=== PATIENT | female | born 1955 | race Caucasian/White ===

== ENCOUNTER 2025-01-29 12:33 | Emergency (ER) | payer OTHER, MEDICAID ==
[~2025-01-29] VITALS: Ht 149.9 cm; Wt 63.4 kg
[~2025-01-29 12:33] MED LIST: LEVO500T91 PO
--- NOTE | 2025-01-29 13:04 | ED.PDOC ---
GI ASSESSMENT HPI Comments 69 y.o female with PMHx of hyperlipidemia and HTN, presents to the ED for a chief complaint of abdominal pain associated with bloating and belching that started 3 days ago. Patient reports pain is localized at the epigastric region, is non radiating, constant and has no alleviating factors. Patient denies any nausea, vomiting, diarrhea, fever, chills, dysuria. Chief Complaint: Abdominal Pain Time Seen by MD: 12:58 Primary Care Provider: CAROL ANN Ríos Notes: Nurses Notes, Medications, Allergies Allergies: Coded Allergies: NO KNOWN ALLERGIES (Unverified , 07/19/16) Home Meds Active Scripts Levofloxacin Hemihydrate (LEVAQUIN 500 MG) 500 Mg Tab, 500 MG PO DAILY for 7 Days, #7 TAB Prov:AGNIESZKA HIRSCH MD 11/22/23 Information Source: Patient Mode of Arrival: Ambulatory Timing: Days (3) Duration: Since onset Quality: Aching Vomitus: None Stool: Normal Severity: Moderate Recent Hx of: None Pain Location: Epigastric Associated sign and symptoms: Abdominal Pain Past Medical History PAST MEDICAL HISTORY: Anxiety, Depression, HTN Surgical History: Unknown APPOINTMENT SETTER History: No Pertinent APPOINTMENT SETTER History Family History Family History: Reviewed,noncontributory to illness Social History Smoker: Non-Smoker Alcohol: Denies ETOH Use Drugs: Denies Drug Use Lives In: Home Constitutional: denies: chills, diaphoresis, fatigue, fever, malaise, sweats, weakness, others EENTM: denies: blurred vision, double vision, ear bleeding, ear discharge, ear drainage, ear pain, ear ringing, eye pain, eye redness, hearing loss, mouth pain, mouth swelling, nasal discharge, nose bleeding, nose congestion, nose pain, photophobia, tearing, throat pain, throat swelling, voice changes, others Respiratory: denies: cough, hemoptysis, orthopnea, SOB at rest, shortness of breath, SOB with excertion, stridor, wheezing, others Cardiovascular: denies: chest pain, dizzy spells, diaphoresis, Dyspnea on exertion, edema, irregular heart beat, left arm pain, lightheadedness, palpitations, PND, syncope, others Gastrointestinal: reports: abdomen distended, abdominal pain; denies: blood streaked bowels, constipated, diarrhea, dysphagia, difficulty swallowing, hematemesis, melena, nausea, poor appetite, poor fluid intake, rectal bleeding, rectal pain, vomiting, others Genitourinary: denies: abnormal vagina bleeding, burning, dyspareunia, dysuria, flank pain, frequency, hematuria, incontinence, pain, , vagina discharge, urgency, others Neurological: denies: dizziness, fainting, headache, left sided numbness, left sided weakness, numbness, paresthesia, pre-existing deficit, right sided numbness, right sided weakness, seizure, speech problems, tingling, tremors, weakness, others Musculoskeletal: denies: back pain, gout, joint pain, joint swelling, muscle pain, muscle stiffness, neck pain, others Integumetry: denies: bruises, change in color, change in hair/nails, dryness, laceration, lesions, lumps, rash, wounds, others Allergic/Immunocompromised: denies: Difficulty Healing, Frequent Infections, Hives, Itching, others Hematologic/Lymphatic: denies: anemia, blood clots, easy bleeding, easy bruising, swollen glands, others Endocrine: denies: excessive hunger, excessive sweating, excessive thirst, excessive urination, flushing, intolerance to cold, intolerance to heat, unexplained weight gain, unexplained weight loss, others Psychiatric: denies: anxiety, bipolar disorder, depression, hopeless, panic disorder, schizophrenia, sleepless, suicidal, others All Other Systems: Reviewed and Negative Physical Exam General Appearance: Moderate Distress HEENT: Normal ENT Inspection, Pharynx Normal, TMs Normal Neck: Full Range of Motion, Non-Tender, Normal, Normal Inspection Respiratory: Chest Non-Tender, Lungs Clear, No Accessory Muscle Use, No Respiratory Distress, Normal Breath Sounds Cardiovascular: No Edema, No JVD, No Murmur, No Gallop, Normal Peripheral Pulses, Regular Rate/Rhythm Breast Exam: Deferred Gastrointestinal: Epigastric, No Organomegaly, No Pulsatile Mass, Normal Bowel Sounds, Soft, Tenderness Genitalia: Deferred Pelvic: Deferred Rectal: Deferred Extremities: No calf tenderness, Normal capillary refill, Normal inspection, Normal range of motion, Non-tender, No pedal edema Musculoskeletal : Apperance: Normal Neurologic: Alert, aws architect II-XII nml as Tested, No Motor Deficits, Normal Affect, Normal Mood, No Sensory Deficits Cerebellar Function: Normal Reflexes: Normal Skin: Dry, Normal Color, Warm Lymphatic: No Adenopathy EKG EKG : Pulse Rate (adult): 102 Anderson: Normal Cardiac Rhythm: ST ST: Nonsp (Low voltage) Was a procedure done? Was a procedure done?: No GI differential Dx Differential Diagnosis: Gastroenteritis, Electrolyte Imbalance, Viral X-Ray, Labs, Meds, VS Vital Signs Date Time Temp Pulse Resp B/P (MAP) Pulse Ox O2 Delivery O2 Flow Rate FiO2 01/29/25 13:10 102 01/29/25 13:07 102 01/29/25 12:58 98.7 70 17 160/80 (106) 97 98.7 Lab Test 01/29/25 14:07 Range/Units White Blood Count 6.9 4.4-10.8 10^3/uL Red Blood Count 4.89 4.0-5.20 10^6/uL Hemoglobin 14.7 12.2-16.2 g/dL Hematocrit 42.5 36.0-46.0 % Mean Corpuscular Volume 86.8 80.0-100.0 fL Mean Corpuscular Hemoglobin 30.0 28.0-32.0 pg Mean Corpuscular Hemoglobin Concent 34.6 32.0-36.0 g/dL Red Cell Distribution Width 13.1 11.8-14.3 % Platelet Count 168 140-450 10^3/uL Mean Platelet Volume 7.8 6.9-10.8 fL Neutrophils (%) (Auto) 66.4 37.0-80.0 % Lymphocytes (%) (Auto) 25.6 10.0-50.0 % Monocytes (%) (Auto) 7.0 0.0-12.0 % Eosinophils (%) (Auto) 0.7 0.0-7.0 % Basophils (%) (Auto) 0.3 0.0-2.0 % Neutrophils # (Auto) 4.6 1.6-8.6 10 ^3/uL Lymphocytes # (Auto) 1.8 0.4-5.4 10 ^3/uL Monocytes # (Auto) 0.5 0-1.3 10 ^3/uL Eosinophils # (Auto) 0 0-0.8 10 ^3/uL Basophils # (Auto) 0 0-0.2 10 ^3/uL Nucleated Red Blood Cells 0.1 % Sodium Level 142 136-145 mmol/L Potassium Level 3.3 L 3.5-5.1 mmol/L Chloride Level 99 98-107 mmol/L Carbon Dioxide Level 33 H 20-31 mmol/L Anion Gap 10 5-15 Blood Urea Nitrogen 15 9-23 mg/dL Creatinine 0.82 0.550-1.02 mg/dL Glomerular Filtration Rate Calc 77 >90 mL/min BUN/Creatinine Ratio 18.3 10.0-20.0 Serum Glucose 91 74-106 mg/dL Calcium Level 9.6 8.7-10.4 mg/dL Total Bilirubin 0.6 0.2-1.0 mg/dL Aspartate Amino Transferase (AST) 52 H <34 U/L Alanine Aminotransferase (ALT) 47 H 7-40 U/L Alkaline Phosphatase 140 H 46-116 U/L Total Protein 6.9 5.7-8.2 g/dL Albumin 4.7 3.2-4.8 g/dL Lipase 29 12-53 U/L Current Medications Medications (Trade) Dose Ordered Sig/[place] Route Start Time Stop Time Status Last Admin Pantoprazole Sodium (Protonix) 40 mg ONCE ONCE IV 01/29/25 13:15 01/29/25 13:16 DC 01/29/25 13:15 Ondansetron HCl (Zofran) 4 mg ONCE ONCE IV 01/29/25 13:15 01/29/25 13:16 DC 01/29/25 13:15 EXAM: US GALLBLADDER IMPRESSION: 1. Unremarkable right upper quadrant ultrasound. The patient's CBC and chemistry panel are within normal limits but the liver enzymes are elevated The patient was given Protonix 40 mg IV push The patient was given Zofran 4 mg IV push At this time the patient is still having persistent abdominal pain We did go ahead and call the patient's health plan and they did state that this patient would be considered unstable for transfer This process did take longer than expected because we did speak to the protective services case worker at least a couple of times and finally were able to get the physician on the phone for discussion as a peer to peer The patient is being admitted at this time Images Reviewed?: Images reviewed and evaluated by me Time of 1ST Reevaluation: 13:04 Reevaluation 1ST: Unchanged Patient Education/Counseling: Diagnosis, Treatment, Prognosis Family Education/Counseling: No Family Present Departure 1 Departure Time of Disposition: 19:44 Impression: Primary Impression: Intractable abdominal pain Disposition: 09 ADMITTED INPATIENT Admit to: Med Surg Condition: Fair Critical Care Note Critical Care Time?: No Stability Stability form required: Yes Unstable for transfer: ED Physician Assesment (Clinical assesment) I personally scribed for NAYE COOK MD ([email or web address]) on 01/29/25 at 13:04. Electronically submitted by Roma Adkins ([facility]). I personally scribed for NAYE COOK MD ([email or web address]) on 01/29/25 at 14:09. Electronically submitted by Roma Adkins ([facility]). NAYE COOK MD Jan 29, 2025 13:04
--- NOTE | 2025-01-29 13:09 | ECG ---
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
[2025-01-29] MEDS: ONDANSETRON HCL 4 MG/2 ML VIAL IV ONE (13:15)
[2025-01-29] MEDS: PANTOPRAZOLE 40 MG/10 ML VIAL INJ IV ONE (13:15)
--- NOTE | 2025-01-29 13:54 | DVH ---
EXAM: US GALLBLADDER HISTORY: pain COMPARISON: None TECHNIQUE: Right upper quadrant ultrasound was performed. FINDINGS: No gallstones, gallbladder wall thickening, or pericholecystic free fluid. The patient was not tender to transducer pressure over the gallbladder. No intrahepatic biliary ductal dilatation or liver mass. There is hepatopetal portal venous color doppler flow. The common duct measures 3 mm in d iameter. The partially visualized pancreas is unremarkable. The intrahepatic portion of the IVC is pa tent. No upper abdominal aortic ectasia. The right kidney measures 9.9 cm in length and is normal in appearance. The liver measures 12.6 cm. IMPRESSION: 1. Unremarkable right upper quadrant ultrasound.
[2025-01-29 14:25] LABS: Basophils # (auto) 0 10 ^3/uL (0-0.2); Basophils % (auto) 0.3 % (0.0-2.0); Eosinophils # (auto) 0 10 ^3/uL (0-0.8); Eosinophils % (auto) 0.7 % (0.0-7.0); Hematocrit 42.5 % (36.0-46.0); Hemoglobin 14.7 g/dL (12.2-16.2); Lymphocytes # (auto) 1.8 10 ^3/uL (0.4-5.4); Lymphocytes % (auto) 25.6 % (10.0-50.0); Mean Corpuscular Hgb Conc. 34.6 g/dL (32.0-36.0); Mean Corpuscular Volume 86.8 fL (80.0-100.0); Monocytes # (auto) 0.5 10 ^3/uL (0-1.3); Neutrophils # (auto) 4.6 10 ^3/uL (1.6-8.6); Neutrophils % (auto) 66.4 % (37.0-80.0); Nucleated Red Blood Cells % 0.1 %; Platelet Count (auto) 168 10^3/uL (140-450); Red Blood Cells 4.89 10^6/uL (4.0-5.20); Red Cell Distribution Width 13.1 % (11.8-14.3); White Blood Cell 6.9 10^3/uL (4.4-10.8)
[2025-01-29 14:42] LABS: Albumin 4.7 g/dL (3.2-4.8); Anion Gap 10 (5-15); BUN/Creatinine Ratio 18.3 (10.0-20.0); Bilirubin, Total 0.6 mg/dL (0.2-1.0); Blood Urea Nitrogen 15 mg/dL (9-23); Calcium 9.6 mg/dL (8.7-10.4); Chloride 99 mmol/L (98-107); Glucose 91 mg/dL (74-106); Lipase 29 U/L (12-53); Sodium 142 mmol/L (136-145); Total Protein 6.9 g/dL (5.7-8.2)
[2025-01-29 14:50] LABS: Alanine Aminotransferase 47 U/L (7-40); Alkaline Phosphatase 140 U/L (46-116); Aspartate Aminotransferase 52 U/L (<34); Carbon Dioxide 33 mmol/L (20-31); Potassium 3.3 mmol/L (3.5-5.1)
[2025-01-29 20:14] VITALS: BP 147/70; PULSE 82; RESP 18; TEMP 98.1; O2SAT 96
[2025-01-29] MEDS: IOHEXOL 300 MG/ML 100ML BOTTLE IJ ONE (23:39)
--- NOTE | 2025-01-29 23:59 | DVH ---
Exam: CT CT AB PEL WITH IV CON ONLY History: abd pain COMPARISON: None Technique: Multidetector spiral CT of the abdomen and pelvis was performed from lung bases to pubic s ymphysis. Intravenous contrast was administered during this examination. Portal venous imaging was o btained. Axial, coronal and sagittal multiplanar reformats were performed by the technologist on a [employer] workstation. Radiation Dose : 1. Abdomen/Pelvis: CTDIvol 10.24mGy, DLP 532.07 mGy*cm. CONTRAST: Type of contrast: Omnipaque 300 Contrast injected: 100 ml Findings: Lung Bases: No acute or significant lung base finding. Right anterior lung base calcified granuloma. Normal heart size. No pleural or pericardial effusion. Liver: The liver is normal in size. No focal lesions. Normal hepatic vascular enhancement. Gallbladder and Biliary Tree: Unremarkable Spleen: Unremarkable Pancreas: The pancreas is normal in appearance without focal lesions or abnormal enhancement. Adrenal Glands: Unremarkable Kidneys: No hydronephrosis. Bladder: Unremarkable Bowel: The stomach is grossly normal in appearance. Small bowel and colon are normal in caliber and d istribution. Diverticulosis coli without CT evidence of acute diverticulitis. The appendix is normal. Ascites: Absent Lymphadenopathy: No mesenteric, retroperitoneal or periportal lymphadenopathy. Abdominal Wall and Mesentery: Unremarkable. Vasculature: The visualized abdominal aorta is normal in size and caliber. Atherosclerotic vascular c alcifications. Abdominal and pelvic vessels demonstrate normal enhancement. Pelvic Organs: Unremarkable Musculoskeletal: No aggressive focal bony lesions, acute fractures or dislocation. IMPRESSION: 1. No acute abdominal or pelvic finding. Radiation optimization: All CT scans at this facility use at least one of these dose optimization monique hniques: automated exposure control mA and/or kV adjustment per patient size (includes targeted exam s where dose is matched to clinical indication) or iterative reconstruction.
[2025-01-30] MEDS ORDERED: GABA300T4 PO (00:48)
[2025-01-30] MEDS ORDERED: ARIP20TA4 PO (00:48)
[2025-01-30] MEDS ORDERED: CLON-1003 PO (00:48)
[2025-01-30] MEDS ORDERED: FAMO20TA10 PO (00:48)
== END 2025-01-30 01:31 | disposition home or self-care (01) ==
LOC: ER 12:35
DX: R10.13 Epigastric pain (principal); F41.9 Anxiety disorder, unspecified; F32.A Depression, unspecified; I10 Essential (primary) hypertension; E78.5 Hyperlipidemia, unspecified
CPT/HCPCS: 36415; 74177; 76705; 80053; 83690; 85025; 93005; 96374; 96375; 99285; J2405; J2470; Q9967

== ENCOUNTER 2025-01-30 02:20 | Emergency (ER) | payer OTHER, MEDICAID ==
[~2025-01-30] VITALS: Ht 149.9 cm; Wt 63.4 kg
[~2025-01-30 02:20] MED LIST changes: +ARIP20TA4 PO; +CLON-1003 PO; +FAMO20TA10 PO; +GABA300T4 PO
--- NOTE | 2025-01-30 02:50 | ED.PDOC ---
HPI (NEURO) HPI Comments 69 y/o F, with a history of HLD, HTN, and seizures, presents with spouse for seizure episode. Per spouse, patient was just discharged from [facility] ED for earlier visit for abdominal pain, with bloating and belching, when she began having a witnessed seizure of few seconds in duration in ED lobby. Patient is reported to have been without her Klonopin medication for over 2x weeks, with no issues up until today. During the discharge process, patient began endorsing on feeling a headache. No signs of oral trauma or incontinence endorsed. Chief Complaint: Seizure Time Seen by MD: 02:30 Primary Care Provider: CAROL ANN Reviewed Notes: Nurses Notes, Medications, Allergies Information Source: Patient, Spouse, [facility] Medical Record, Past Medical Record Mode of Arrival: Ambulatory Severity: Moderate Timing: Minutes Duration: Minutes Prehospital treatment: None Past Medical History PAST MEDICAL HISTORY: Anxiety, Depression, HTN, Seizures (klonopin) Surgical History: Unknown JOCKEY ROOM CUSTODIAN History: No Pertinent JOCKEY ROOM CUSTODIAN History Family History Family History: Reviewed,noncontributory to illness Social History Smoker: Non-Smoker Alcohol: Denies ETOH Use Drugs: Denies Drug Use Lives In: Home All Other Systems: Reviewed and Negative (see HPI) Physical Exam General Appearance: No Apparent Distress, Normal HEENT: Normal ENT Inspection, Pharynx Normal, TMs Normal Neck: Full Range of Motion, Non-Tender, Normal, Normal Inspection Respiratory: Chest Non-Tender, Lungs Clear, No Accessory Muscle Use, No Respiratory Distress, Normal Breath Sounds Cardiovascular: No Edema, No JVD, No Murmur, No Gallop, Normal Peripheral Pulses, Regular Rate/Rhythm Breast Exam: Deferred Gastrointestinal: No Organomegaly, Non Tender, No Pulsatile Mass, Normal Bowel Sounds, Soft Genitalia: Deferred Pelvic: Deferred Rectal: Deferred Extremities: No calf tenderness, Normal capillary refill, Normal inspection, Normal range of motion, Non-tender, No pedal edema Musculoskeletal : Apperance: Normal Neurologic: Alert, machine puller and laster II-XII nml as Tested, No Motor Deficits, No Sensory Deficits, Other (mildly lethargic but answer questions) Cerebellar Function: Normal Reflexes: Normal Skin: Dry, Normal Color, Warm Lymphatic: No Adenopathy Was a procedure done? Was a procedure done?: No Differential Diagnosis (SZ) Seizure: Hyperventilation, Closed Head Injury, Hypocalcemia, Hypoglycemia, Hyponatremia, Hypoxemia, Idiopathic, Syncope, Encephalopathy, Epilepsy-Status X-Ray, Labs, Meds, VS Vital Signs Date Time Temp Pulse Resp B/P (MAP) Pulse Ox O2 Delivery O2 Flow Rate FiO2 01/30/25 04:00 84 20 156/62 (93) 98 01/30/25 03:05 87 20 97 Nasal Cannula* 2 28 01/30/25 03:05 97.8 87 20 156/78 (104) 97 97.8 01/30/25 02:31 98.7 99 20 191/92 (125) 92 98.7 Lab Test 01/30/25 03:12 Range/Units White Blood Count 5.5 4.4-10.8 10^3/uL Red Blood Count 4.80 4.0-5.20 10^6/uL Hemoglobin 14.4 12.2-16.2 g/dL Hematocrit 41.5 36.0-46.0 % Mean Corpuscular Volume 86.6 80.0-100.0 fL Mean Corpuscular Hemoglobin 30.0 28.0-32.0 pg Mean Corpuscular Hemoglobin Concent 34.7 32.0-36.0 g/dL Red Cell Distribution Width 13.2 11.8-14.3 % Platelet Count 166 140-450 10^3/uL Mean Platelet Volume 8.2 6.9-10.8 fL Neutrophils (%) (Auto) 55.4 37.0-80.0 % Lymphocytes (%) (Auto) 35.8 10.0-50.0 % Monocytes (%) (Auto) 7.3 0.0-12.0 % Eosinophils (%) (Auto) 1.1 0.0-7.0 % Basophils (%) (Auto) 0.4 0.0-2.0 % Neutrophils # (Auto) 3.0 1.6-8.6 10 ^3/uL Lymphocytes # (Auto) 2.0 0.4-5.4 10 ^3/uL Monocytes # (Auto) 0.4 0-1.3 10 ^3/uL Eosinophils # (Auto) 0.1 0-0.8 10 ^3/uL Basophils # (Auto) 0 0-0.2 10 ^3/uL Nucleated Red Blood Cells 0.1 % Sodium Level 138 136-145 mmol/L Potassium Level 4.7 3.5-5.1 mmol/L Chloride Level 97 L 98-107 mmol/L Carbon Dioxide Level 28 20-31 mmol/L Anion Gap 13 5-15 Blood Urea Nitrogen 15 9-23 mg/dL Creatinine 0.93 0.550-1.02 mg/dL Glomerular Filtration Rate Calc 66 >90 mL/min BUN/Creatinine Ratio 16.1 10.0-20.0 Serum Glucose 132 H 74-106 mg/dL Calcium Level 9.1 8.7-10.4 mg/dL Magnesium Level 2.1 1.6-2.6 mg/dL Total Bilirubin 0.7 0.2-1.0 mg/dL Aspartate Amino Transferase (AST) 80 H <34 U/L Alanine Aminotransferase (ALT) 49 H 7-40 U/L Alkaline Phosphatase 125 H 46-116 U/L Total Protein 6.3 5.7-8.2 g/dL Albumin 4.6 3.2-4.8 g/dL Plasma/Serum Blood Alcohol < 3.0 <10 mg/dL Current Medications Medications (Trade) Dose Ordered Sig/[place] Route Start Time Stop Time Status Last Admin Sodium Chloride 1,000 ml @ 1,000 mls/hr Q1H ONCE IV 01/30/25 04:15 01/30/25 05:14 01/30/25 04:23 Lorazepam (Ativan Inj) 1 mg ONCE ONCE IV 01/30/25 04:15 01/30/25 04:16 DC 01/30/25 04:23 Lorazepam (Ativan Inj) 1 mg ONCE ONCE IV 01/30/25 04:15 01/30/25 04:16 DC 01/30/25 04:24 Time of 1ST Reevaluation: 03:00 Reevaluation 1ST: Improved Patient Education/Counseling: Treatment Family Education/Counseling: Treatment Departure 1 Departure Time of Disposition: 05:00 Impression: Primary Impression: Benzodiazepine withdrawal Additional Impression: Seizure Disposition: 01 HOME / SELF CARE / HOMELESS Condition: Stable Discharged With: Self Critical Care Note Critical Care Time?: No Stability Stability form required: No Heart Score Heart Score: Heart Score Response (Comments) Value History N/A 0 EKG N/A 0 Age N/A 0 Risk Factors N/A 0 Troponin N/A 0 Total 0 I personally scribed for GERARD HINDS MD ([email or web address]) on 01/30/25 at 02:50. Electronically submitted by Steve Daugherty ([email or web address]). GERARD HINDS MD Jan 30, 2025 02:50
[2025-01-30 03:05] VITALS: PULSE 87; RESP 20; TEMP 97.8; O2SAT 97
--- NOTE | 2025-01-30 03:21 | DVH ---
EXAM: CT HEAD WITHOUT CONTRAST INDICATION: new onset seizure TECHNIQUE: CT of the head without intravenous contrast. Radiation Dose : 1. Head: CT Dose: CTDI volume is 60.31 mGy. Dose-length product is 966.65 mGy*cm The dose indicators for CT are the volume Computed Tomography (CT) Dose Index (CTDIvol) and the Dose Length Product (DLP), and are measured in units of mGy and mGy-cm, respectively. These indicators are not patient dose, but values generated from the CT scanner acquisition factors. The report includes radiation exposure data for exposures received during this examination. COMPARISON: CT HEAD WITHOUT CONTRAST on DOS: 11/22/23 FINDINGS: There is no evidence of acute intracranial hemorrhage, extra-axial collection, mass effect, midline s hift, herniation or hydrocephalus. The ventricles, sulci and cisterns are age appropriate. The gill-white differentiation is intact. Patchy periventricular and subcortical white matter hypoattenuation is nonspecific but may be related to small vessel ischemic disease. The visualized paranasal sinuses and mastoid air cells are clear. The surrounding soft tissues and osseous structures are unremarkable. IMPRESSION: 1. No acute intracranial abnormality. Radiation optimization: All CT scans at this facility use at least one of these dose optimization monique hniques: automated exposure control mA and/or kV adjustment per patient size (includes targeted exam s where dose is matched to clinical indication) or iterative reconstruction.
[2025-01-30 03:22] LABS: Basophils # (auto) 0 10 ^3/uL (0-0.2); Basophils % (auto) 0.4 % (0.0-2.0); Eosinophils # (auto) 0.1 10 ^3/uL (0-0.8); Eosinophils % (auto) 1.1 % (0.0-7.0); Hematocrit 41.5 % (36.0-46.0); Hemoglobin 14.4 g/dL (12.2-16.2); Lymphocytes % (auto) 35.8 % (10.0-50.0); Mean Corpuscular Hgb Conc. 34.7 g/dL (32.0-36.0); Mean Corpuscular Volume 86.6 fL (80.0-100.0); Monocytes # (auto) 0.4 10 ^3/uL (0-1.3); Monocytes % (auto) 7.3 % (0.0-12.0); Neutrophils % (auto) 55.4 % (37.0-80.0); Nucleated Red Blood Cells % 0.1 %; Platelet Count (auto) 166 10^3/uL (140-450); Red Cell Distribution Width 13.2 % (11.8-14.3); White Blood Cell 5.5 10^3/uL (4.4-10.8)
[2025-01-30 03:45] LABS: Albumin 4.6 g/dL (3.2-4.8)
[2025-01-30 03:46] LABS: Bilirubin, Total 0.7 mg/dL (0.2-1.0)
[2025-01-30 03:47] LABS: Anion Gap 13 (5-15); BUN/Creatinine Ratio 16.1 (10.0-20.0); Calcium 9.1 mg/dL (8.7-10.4); Carbon Dioxide 28 mmol/L (20-31); Magnesium 2.1 mg/dL (1.6-2.6); Sodium 138 mmol/L (136-145); Total Protein 6.3 g/dL (5.7-8.2)
[2025-01-30 03:51] LABS: Alanine Aminotransferase 49 U/L (7-40); Alkaline Phosphatase 125 U/L (46-116); Aspartate Aminotransferase 80 U/L (<34); Blood Urea Nitrogen 15 mg/dL (9-23); Chloride 97 mmol/L (98-107); Glucose 132 mg/dL (74-106); Potassium 4.7 mmol/L (3.5-5.1)
[2025-01-30] MEDS: SODIUM CHLORIDE 0.9% 1,000 ML IV ONE (04:23)
[2025-01-30] MEDS: LORazepam 2MG/ML-1ML VIAL IV ONE ×2 (04:23→04:24)
[2025-01-30 05:00] LABS: Blood Alcohol < 3.0 mg/dL (<10)
[2025-01-30 06:11] VITALS: BP 100/54; PULSE 69; RESP 15; O2SAT 100
== END 2025-01-30 06:12 | disposition home or self-care (01) ==
LOC: ER 02:20
DX: F13.239 Sedative, hypnotic or anxiolytic dependence with withdrawal, unspecified (principal); R56.9 Unspecified convulsions; I10 Essential (primary) hypertension; E78.5 Hyperlipidemia, unspecified; F41.9 Anxiety disorder, unspecified
CPT/HCPCS: 36415; 70450; 80053; 80320; 83735; 85025; 96361; 96374; 99285; J2060; J7030